=== PATIENT | female | born 1995 | race Caucasian/White ===

== ENCOUNTER 2023-08-18 00:48 | Day surgery (SDC) | payer BC, SELFPAY ==
[2023-08-08 09:37] VITALS: BMI 22.3
--- NOTE | 2023-08-08 09:42 | PC.NURSE ---
Report to the Outpatient Waiting Room, entrance under the green pavilion located off [facility], at time 1130 on date 08/18/23. Planned Procedure Time: 1330. Time changes happen often and if your time is changed the preop area will call you the afternoon before. - You and your visitor will be asked to self-screen and do not enter if you have any COVID symptoms. - A mask is optional within the hospital at this time. Patients may have clear liquids (water, carbonated beverages, clear teas, apple juice) until 3 hours prior to surgery with a maximum of 20 ounces. - No food from midnight until time of surgery Take the following medications with a SIP of water the morning of surgery: LAMOTRIGINE DO NOT STOP ANY OF YOUR OTHER PRESCRIPTION MEDICATIONS PRIOR TO SURGERY ?EXCEPT THE FOLLOWING Medications to discontinue per physician: N/A Date to take last dose: N/A Please no make-up, nail vietnamese, hairspray, perfume, deodorant, or body powder the day of surgery. No jewelry (including any body piercings) or valuables the day of surgery, leave them at home. Please take a shower or bath the night before, or the morning of, surgery with an antibacterial soap. Wear comfortable, loose fitting clothing. - Jewelry must be removed prior to entering the operating room. Rings and piercings that are not removed may be cut off. - The hospital will not accept responsibility for valuables. - Please leave all valuables, including medications, at home the day of surgery. If you are going home after surgery, a licensed food mobile driver must drive you home. - NO public transportation without another adult if you receive anesthesia. - We recommend that an adult stay with you for 24 hours following discharge. - We also recommend that you do not drive, make important decision, drink alcoholic beverages, or take any drugs that were not prescribed by your health care provider for at least 24 hours after your discharge time. Follow any additional instructions given to you from your surgeon. If you or anyone in your household have experienced Covid symptoms in the past week, please notify your surgeon or the nurse liaison at the phone number below for possible testing. Telephone instructions given to STU CALLE and asked if any additional questions and then verbalized understanding. Patient advised to call surgeon office or pre surgery nurse liaison [phone] if any additional questions.
--- NOTE | 2023-08-18 07:13 | WPDHPUPDATE1 ---
History and Physical Update Update Date/Time: 08/18/23 07:13 History and Physical has been reviewed, including an updated exam of the patient. There are NO changes in the patient's condition. Risks, benefits, and alternatives have been discussed and questions answered. Patient agrees to proceed with vaginal polypectomy.
[2023-08-18 12:00] VITALS: BP 104/69; PULSE 108; RESP 14; TEMP 37; O2SAT 100
[2023-08-18] MEDS: ACETAMINOPHEN 500 MG TABLET 1000 MG PO (12:00)
[2023-08-18] MEDS: LACTATED RINGERS 1,000 ML 30 ML IV CONT (12:00)
--- NOTE | 2023-08-18 12:05 | WPDANESEPPF ---
Anes - Initial Pre Proc Eval Procedure: Operation Date: 08/18/23 13:30 Proposed Procedures p Removal of Vaginal Polyp - Preeti Myrick MD Date/Time: 08/18/23 12:05 Surgeon: Preeti Myrick MD Pre Op Diagnosis: Vaginal Polyp Patient Data Age: 28 Gender: F Height: 1.57 m Weight: 55.35 kg Allergies Allergy/AdvReac Type Severity Reaction Status Date / Time No Known Allergies Allergy Verified 08/08/23 09:36 Home Medications Medication Instructions Recorded Confirmed Type atomoxetine 60 mg capsule 100 mg PO DAILY 08/06/23 08/08/23 History lamotrigine 25 mg tablet 100 mg PO DAILY 08/06/23 08/08/23 History Patient hx anesthesia problems: none Family hx anesthesia problems: none Results Review: All pre-operative results and documents have been reviewed as part of the pre-operative evaluation. [facility] Past Medical History Medical History ADHD Anxiety Bipolar disease, chronic Encounter for gynecological examination (general) (routine) with abnormal findings Insertion of Nexplanon insertion - 2015 Marijuana use Nexplanon in place Surgical History Surgical History Hx of tonsillectomy Family History Family History Father No problems noted. Grandparent Breast cancer Mother No problems noted. Social History Social History (Updated 08/06/23 @ 09:53 by Jackeline Cuenca MA) Smoking status: Never smoker Additional smoking assessment comments: marijuana use Alcohol intake: never Drinks per week: 0 Substance use: current Substance use type: marijuana Do You Feel Safe in your Home?: Yes Lack of Transportation: No Lack of Food: Never True Current Housing: I Have Housing Concerned About Future Housing: No Difficulty Paying Gas/Electric Bills: No Difficulty Paying for Meds: No Currently Unemployed: No Education: High School Diploma/GED Difficulty w/ Childcare or Family Care: No Living arrangements: with roommate(s) Occupation/Education: occupation Gender identity (if verbalized by the patient): Female Sexual Orientation (if Verbalized by the Patient): Bisexual Spiritual care concerns: No Anes - Eval Final PreProcedure Day of Procedure 08/18/23 12:05 Patient weight: normal Heart: regular rate and rhythm Lungs: clear to auscultation Airway: Mallampati scale Neurological: alert and oriented Last oral intake: >/= 8 hours ASA classification: II Emergent: no Anesthetic plan: proceed Anesthesia type and monitoring: general GIVS and standard monitoring Results Review: All pre-operative results and documents have been reviewed as part of the pre-operative evaluation. Informed Consent: The patient's anesthetic plan and its attendant risks and benefits were discussed with the patient/family/POA. Questions were solicited and answers provided to the satisfaction of the patient/family/POA.
[2023-08-18 12:12] LABS: Glucose Point of Care 102 mg/dl (65-105)
[2023-08-18] MEDS: LIDOCAINE HCL 1% LOCAL INJ 20 ML VIAL 10 ML INFILTRATE (12:33)
[2023-08-18 12:43] VITALS: BP 86/49; PULSE 80; RESP 16; O2SAT 100
--- NOTE | 2023-08-18 12:44 | W.PM.PROC2 ---
Procedure Note - Detailed Date of Procedure 08/18/23 Pre-op Diagnosis Vaginal Polyp Post-op Diagnosis Same Procedure Performed Vaginal polypectomy Surgeon Preeti Myrick MD Anesthesia MAC and Local (1% lidocaine plain: 1cc used) Findings 2.5x0.5cm vaginal polyp arising from the sub-urethral area @ 12o'clock in the vagina. Good hemostasis at the end of the case. Description of Procedure Juli was taken to the operating room where she was placed under sedation without complications. She was prepped and draped in the usual sterile fashion in dorsal lithotomy position. A time-out was performed and no antibiotics were indicated. The vaginal polyp was grasped with a Allis clamp and elevated from its base. It was identified that the base was suburethral in the 12 o'clock position. The base was infiltrated using 1cc of 1% lidocaine. Using a scalpel the polyp was removed from its base. Small bleeders were cauterized using Bovie cautery. The vaginal mucosa was then reapproximated using a 2-0 Vicryl in a running, locking fashion and good hemostasis was noted. A straight catheterization was then performed without issue. Sponge, lap, instrument, and needle counts were correct at the end the procedure. Patient was awoken from anesthesia and taken to recovery in stable condition with plans of same day discharge home. Estimated Blood Loss 5 IV Fluids 900 Urine Output 20 Pathology Yes Complications No immediate complications Condition Stable Disposition Same day [facility] Billing Surgery - Charge Forward: Surgery Billing
[2023-08-18 13:10] VITALS: BP 96/64; PULSE 78; RESP 16
[2023-08-18 13:40] VITALS: BP 109/68; PULSE 81
== END 2023-08-18 13:55 | disposition home or self-care (01) ==
PROVIDERS: PCP Family Medicine; Visit Provider Obstetrics & Gynecology
PROC: (CPT 57135; principal; 2023-08-18 13:30)
DX: N84.2 Polyp of vagina (principal); F31.9 Bipolar disorder, unspecified; F41.9 Anxiety disorder, unspecified; F90.9 Attention-deficit hyperactivity disorder, unspecified type; F12.90 Cannabis use, unspecified, uncomplicated
CPT/HCPCS: 57135; 82948; 88305; A9270; J2250; J2704; J3010; J7120